=== PATIENT | male | born 1960 | race African-American/Black ===

== ENCOUNTER 2024-06-17 10:58 | Emergency (ER) | payer OTHER ==
[~2024-06-17] VITALS: Ht 188 cm; Wt 106.0 kg
[~2024-06-17 10:58] MED LIST: DOCU-138 MT; FERR325T6 MT
[2024-06-17 11:19] VITALS: O2SAT 99
[2024-06-17 12:16] LABS: HEMATOCRIT. 46.3 % (42.0-52.0); HEMOGLOBIN. 15.7 g/dL (14.0-18.0); MEAN CORPUSCULAR HEMOGLOBIN 32.4 pg (28.0-32.0); MEAN CORPUSCULAR VOLUME 95.3 fL (80.0-94.0); MEAN PLATELET VOLUME 7.8 fl (7.4-10.4); PLATELET 290 x1000/uL (130-400); RED BLOOD CELL COUNT 4.86 mill/uL (4.7-6.1); RED CELL DISTRIBUTION WIDTH 13.7 % (11.6-14.6); WHITE BLOOD COUNT 9.2 x1000/uL (4.5-11.0)
[2024-06-17 12:24] LABS: CHLORIDE 108 mEq/L (98-107); POTASSIUM 3.7 mEq/L (3.5-5.1); SODIUM 140 mEq/L (136-145)
[2024-06-17 12:25] LABS: CALCIUM 9.8 mg/dL (8.7-10.4); CARBON DIOXIDE 23 mEq/L (21-32)
[2024-06-17 12:30] LABS: CREATININE 1.3 mg/dL (0.6-1.3); GLUCOSE 147 mg/dL (70-105); UREA NITROGEN BLOOD 9 mg/dL (9-23)
[2024-06-17 12:31] LABS: TROPONIN I HIGH SENSITIVITY 4 ng/L (3.0-53)
[2024-06-17 12:41] LABS: DIFFERENTIAL COMMENT 1
[2024-06-17] MEDS ORDERED: CLIN-194 MT (13:27)
[2024-06-17] MEDS: CLINDAMYCIN HCL 150MG CAPSULE PO STA (14:29)
[2024-06-17 14:32] VITALS: BP 153/80; PULSE 86; RESP 16; TEMP 36.89184; O2SAT 98
[2024-06-17 15:08] LABS: PLATELET ESTIMATE NORMAL
== END 2024-06-17 14:38 | disposition home or self-care (01) ==
LOC: ER 11:58
DX: R07.89 Other chest pain (principal); K04.7 Periapical abscess without sinus; I10 Essential (primary) hypertension; J45.909 Unspecified asthma, uncomplicated
CPT/HCPCS: 36415; 71045; 80048; 84484; 85025; 93005; 99285

== ENCOUNTER 2024-11-12 10:49 | Emergency (ER) | payer OTHER ==
[~2024-11-12] VITALS: Ht 188 cm; Wt 106.0 kg
[~2024-11-12 10:49] MED LIST changes: +CLIN-194 MT
[2024-11-12 10:51] VITALS: O2SAT 97
[2024-11-12 11:26] LABS: BASOPHILS % 1.1 % (0.0-2.0); EOSINOPHILS % 9.7 % (0.0-5.0); HEMATOCRIT. 41.8 % (42.0-52.0); HEMOGLOBIN. 13.9 g/dL (14.0-18.0); LYMPHOCYTES % 19.3 % (20.0-50.0); MEAN CORPUSCULAR HEMOGLOBIN 31.3 pg (28.0-32.0); MEAN CORPUSCULAR HGB CONC 33.3 g/dL (31.0-37.0); MEAN CORPUSCULAR VOLUME 93.8 fL (80.0-94.0); MEAN PLATELET VOLUME 7.5 fl (7.4-10.4); MONOCYTES % 10.2 % (2.0-8.0); NEUTROPHILS % 59.7 % (40.0-76.0); PLATELET 246 x1000/uL (130-400); RED BLOOD CELL COUNT 4.46 mill/uL (4.7-6.1); RED CELL DISTRIBUTION WIDTH 14.1 % (11.6-14.6); WHITE BLOOD COUNT 6.3 x1000/uL (4.5-11.0)
[2024-11-12 11:32] LABS: CHLORIDE 107 mEq/L (98-107); POTASSIUM 3.7 mEq/L (3.5-5.1); SODIUM 143 mEq/L (136-145)
[2024-11-12 11:33] LABS: CALCIUM 9.5 mg/dL (8.7-10.4); CARBON DIOXIDE 26 mEq/L (21-32)
[2024-11-12 11:38] LABS: CREATININE 1.2 mg/dL (0.6-1.3); GLUCOSE 109 mg/dL (70-105); TROPONIN I HIGH SENSITIVITY 5 ng/L (3.0-53); UREA NITROGEN BLOOD 12 mg/dL (9-23)
[2024-11-12] MEDS ORDERED: LIDO700A30 TP (12:13)
[2024-11-12 12:30] VITALS: BP 159/88; PULSE 77; RESP 18; TEMP 36.6; O2SAT 98
== END 2024-11-12 12:40 | disposition home or self-care (01) ==
LOC: ER 10:49
DX: R07.89 Other chest pain (principal); I10 Essential (primary) hypertension; J45.909 Unspecified asthma, uncomplicated
CPT/HCPCS: 36415; 71045; 80048; 84484; 85025; 93005; 99285

== ENCOUNTER 2025-07-20 13:10 | Inpatient (IN) | payer MEDICARE, MEDICAID ==
[~2025-07-20] VITALS: Ht 182.9 cm; Wt 107.5 kg
[~2025-07-20 13:10] MED LIST changes: +AMLO-905 PO; +ASCO500C14 PO; -CLIN-194 MT; +CYAN250010 PO; +DICL50TA9 PO; +HYDR50TA40 PO; +LIDO700A30 TP; +METF-414 PO; +METF500S9 PO; +SIMV-341 PO; +VITAMIN D PO
[2025-07-20 13:14] VITALS: O2SAT 98
[2025-07-20 14:26] LABS: *AMPHETAMINES SCREEN URINE NEGATIVE (NEGATIVE); *BARBITURATES SCREEN URINE NEGATIVE (NEGATIVE); *BENZODIAZEPINES SCREEN URINE NEGATIVE (NEGATIVE); *COCAINE SCREEN URINE NEGATIVE (NEGATIVE); CANNABINOID URINE SCREEN NEGATIVE (NEGATIVE); ECSTASY MDMA SCREEN URINE NEGATIVE (NEGATIVE); METHADONE URINE SCREEN NEGATIVE (NEGATIVE); OPIATES URINE SCREEN NEGATIVE (NEGATIVE); PHENCYCLIDINE URINE SCREEN NEGATIVE (NEGATIVE)
[2025-07-20 15:52] LABS: BASOPHILS % 0.8 % (0.0-2.0); EOSINOPHILS % 2.8 % (0.0-5.0); HEMATOCRIT. 44.7 % (42.0-52.0); HEMOGLOBIN. 14.9 g/dL (14.0-18.0); LYMPHOCYTES % 20.3 % (20.0-50.0); MEAN PLATELET VOLUME 8.4 fl (7.4-10.4); MONOCYTES % 10.8 % (2.0-8.0); NEUTROPHILS % 65.3 % (40.0-76.0); PLATELET 288 x1000/uL (130-400); RED BLOOD CELL COUNT 4.76 mill/uL (4.7-6.1); RED CELL DISTRIBUTION WIDTH 13.7 % (11.6-14.6)
[2025-07-20 15:58] LABS: CREATININE 1.1 mg/dL (0.6-1.3)
[2025-07-20 15:59] LABS: TROPONIN I HIGH SENSITIVITY 6 ng/L (3.0-53); UREA NITROGEN BLOOD 9 mg/dL (9-23)
[2025-07-20 16:27] LABS: TROPONIN I HIGH SENSITIVITY 6 ng/L (3.0-53)
[2025-07-20] MEDS: ASPIRIN 325MG EC TABLET PO ONE (18:32)
[2025-07-20] MEDS ORDERED: LORA10TA7 MT (19:59)
[2025-07-20 20:00] VITALS: BP_SYST 130; BP_SYST 149; BP_DIAS 88; PULSE 71; PULSE 82; RESP 18; RESP 20; TEMP 36.7; TEMP 37.0852; O2SAT 98
[2025-07-20] MEDS ORDERED: LOSA50TA41 MT (20:06)
[2025-07-20] MEDS ORDERED: DOCUSATE SODIUM 100MG CAPSULE PO PRN (22:45)
[2025-07-20] MEDS ORDERED: ONDANSETRON HCL 4MG/2ML INJ IV PRN (22:45)
[2025-07-20] MEDS ORDERED: DEXTROSE 50% WATER 50ML SYRINGE IV PRN (22:45)
[2025-07-20] MEDS ORDERED: CLONIDINE 0.1MG TABLET PO PRN (22:45)
[2025-07-20] MEDS ORDERED: ACETAMINOPHEN 325MG TABLET PO PRN (22:45)
[2025-07-21] VITALS: BP 138/90; PULSE 71; RESP 20; TEMP 36.6; O2SAT 97
[2025-07-21 04:00] VITALS: BP 116/75; PULSE 75; RESP 20; TEMP 38.3; O2SAT 97
[2025-07-21] MEDS: BLOOD SUGAR DIAGNOSTIC STRIP TEST SCH (06:14)
[2025-07-21] MEDS: INSULIN LISPRO 100 UNITS/ML SUBCUT SCH (06:15)
[2025-07-21 08:00] VITALS: BP 155/80; PULSE 76; RESP 20; TEMP 36.4; O2SAT 98
[2025-07-21] MEDS: ASPIRIN 81MG EC TABLET PO SCH (08:55)
[2025-07-21] MEDS: LOSARTAN 50 MG TABLET PO SCH (08:55)
[2025-07-21] MEDS: HYDRALAZINE HCL 50MG TABLET PO SCH (08:56)
[2025-07-21] MEDS: AMLODIPINE 10MG TABLET PO SCH (08:56)
[2025-07-21 10:40] LABS: BASOPHILS % 0.7 % (0.0-2.0); EOSINOPHILS % 5.2 % (0.0-5.0); HEMATOCRIT. 42.4 % (42.0-52.0); HEMOGLOBIN. 14.2 g/dL (14.0-18.0); LYMPHOCYTES % 20.0 % (20.0-50.0); MEAN PLATELET VOLUME 7.9 fl (7.4-10.4); MONOCYTES % 9.7 % (2.0-8.0); NEUTROPHILS % 64.4 % (40.0-76.0); PLATELET 275 x1000/uL (130-400); RED BLOOD CELL COUNT 4.52 mill/uL (4.7-6.1); RED CELL DISTRIBUTION WIDTH 14.0 % (11.6-14.6)
[2025-07-21] MEDS ORDERED: LATA2.5D7 EACHEYE (10:52)
[2025-07-21] MEDS ORDERED: GABA-529 PO (10:52)
[2025-07-21 10:55] LABS: CREATININE 1.1 mg/dL (0.6-1.3); TRIGLYCERIDE 77 mg/dL (0-150); UREA NITROGEN BLOOD 11 mg/dL (9-23)
[2025-07-21 10:56] LABS: LDL CHOLESTEROL 63 mg/dL (5-100); TROPONIN I HIGH SENSITIVITY 4 ng/L (3.0-53)
[2025-07-21 10:59] LABS: T4 FREE 1.45 ng/dL (0.89-1.76)
[2025-07-21 12:00] VITALS: BP_SYST 132; BP_SYST 133; BP_SYST 140; BP_DIAS 73; BP_DIAS 83; BP_DIAS 84; PULSE 80; RESP 16; TEMP 36.4; O2SAT 99
[2025-07-21 16:00] VITALS: BP 124/74; PULSE 75; RESP 16; TEMP 36.4; O2SAT 96
[2025-07-21 20:00] VITALS: BP 138/78; PULSE 77; RESP 18; TEMP 36.1; O2SAT 95
== END 2025-07-21 22:28 | disposition home or self-care (01) | DRG 305 ==
LOC: ER 13:10 → EDBEDREQTM 18:08 → EDBEDREQ 18:08 → 5WST 18:50
PROVIDERS: ADMIT Internal Medicine; ATTEND Internal Medicine
DX: I16.1 Hypertensive emergency (principal); E11.40 Type 2 diabetes mellitus with diabetic neuropathy, unspecified; J45.909 Unspecified asthma, uncomplicated; I10 Essential (primary) hypertension; R42 Dizziness and giddiness; M19.90 Unspecified osteoarthritis, unspecified site; Z79.84 Long term (current) use of oral hypoglycemic drugs; Z79.899 Other long term (current) drug therapy
CPT/HCPCS: 36415; 71045; 80048; 80061; 80305; 82962; 83880; 84145; 84439; 84443; 84484; 85025; 93005; 99285

== ENCOUNTER 2025-07-31 14:28 | Emergency (ER) | payer MEDICARE, MEDICAID ==
[~2025-07-31] VITALS: Ht 177.8 cm; Wt 109.0 kg
[~2025-07-31 14:28] MED LIST changes: +GABA-529 PO; +LATA2.5D7 EACHEYE; +LORA10TA7 MT; +LOSA50TA41 MT
[2025-07-31 14:40] VITALS: O2SAT 100
[2025-07-31 15:56] LABS: BASOPHILS % 1.5 % (0.0-2.0); EOSINOPHILS % 3.2 % (0.0-5.0); HEMATOCRIT. 42.5 % (42.0-52.0); HEMOGLOBIN. 14.5 g/dL (14.0-18.0); LYMPHOCYTES % 17.9 % (20.0-50.0); MEAN PLATELET VOLUME 7.6 fl (7.4-10.4); MONOCYTES % 9.5 % (2.0-8.0); NEUTROPHILS % 67.9 % (40.0-76.0); PLATELET 281 x1000/uL (130-400); RED BLOOD CELL COUNT 4.57 mill/uL (4.7-6.1); RED CELL DISTRIBUTION WIDTH 13.5 % (11.6-14.6)
[2025-07-31 16:08] LABS: CREATININE 1.0 mg/dL (0.6-1.3); UREA NITROGEN BLOOD 12 mg/dL (9-23)
[2025-07-31 16:10] LABS: TROPONIN I HIGH SENSITIVITY 8 ng/L (3.0-53)
[2025-07-31 17:45] VITALS: BP 132/64; PULSE 70; RESP 15; TEMP 37.2; O2SAT 99
== END 2025-07-31 18:10 | disposition home or self-care (01) ==
LOC: ER 14:28
DX: E11.649 Type 2 diabetes mellitus with hypoglycemia without coma (principal); I10 Essential (primary) hypertension; Z79.84 Long term (current) use of oral hypoglycemic drugs; Z79.899 Other long term (current) drug therapy
CPT/HCPCS: 36415; 71045; 80048; 84484; 85025; 93005; 99291